=== PATIENT | male | born 1965 | race Caucasian/White ===

== ENCOUNTER 2017-07-21 08:06 | Emergency (ER) | payer BC ==
[2017-07-21] MEDS: ACETAMINOPHEN 325 MG TAB PO (09:35)
[2017-07-21] MEDS: IBUPROFEN 600 MG TAB PO (09:35)
== END 2017-07-21 10:36 | disposition home or self-care (01) ==
LOC: FTE 08:06
DX: S50.01XA Contusion of right elbow, initial encounter (principal); W11.XXXA Fall on and from ladder, initial encounter; Y92.9 Unspecified place or not applicable
CPT/HCPCS: 73010; 73030-RT; 73080-RT; 99283-25